=== PATIENT | male | born 1940 | race Caucasian/White ===

== ENCOUNTER 2018-03-25 12:41 | Emergency (ER) | payer MEDICARE ==
[~2018-03-25] VITALS: Ht 177.8 cm; Wt 110.0 kg
[~2018-03-25 12:41] MED LIST: CHOL10002 PO; MULT-257 PO; OMEG1CAP23 PO
[2018-03-25 13:30] LABS: BASOPHILS # (AUTO) 0.02 x10^3/uL (0-0.1); BASOPHILS % (AUTO) 0 % (0-1); EOSINOPHILS # (AUTO) 0.06 x10^3/uL (0-0.4); EOSINOPHILS % (AUTO) 1 % (1-7); LYMPHOCYTES # (AUTO) 0.71 x10^3/uL (1-3.4); LYMPHOCYTES % (AUTO) 10 % (22-44); MD NO; MEAN CORPUSCULAR HEMOGLOBIN 29.2 pg (27.5-34.5); MEAN CORPUSCULAR HGB CONC 33.7 g/dL (33.2-36.2); MEAN CORPUSCULAR VOLUME 86.7 fL (81-97); MONOCYTES # (AUTO) 0.38 x10^3/uL (0.2-0.8); MONOCYTES % (AUTO) 6 % (2-9); NEUTROPHILS # (AUTO) 5.79 x10^3/uL (1.8-6.8); NEUTROPHILS % (AUTO) 83 % (42-75); PLATELET COUNT 180 x10^3/uL (130-400); RED BLOOD COUNT 4.75 x10^6/uL (4.38-5.82); RED CELL DISTRIBUTION WIDTH 14.7 % (9.4-14.8)
[2018-03-25 13:34] LABS: ANION GAP 9 mmol/L (5-15); CALCIUM 9.3 mg/dL (8.5-10.1); CHLORIDE 105 mmol/L (98-107)
[2018-03-25 13:38] LABS: TROPONIN I < 0.015 ng/mL (0.000-0.045)
[2018-03-25 15:07] VITALS: BP 133/69
== END 2018-03-25 15:20 | disposition home or self-care (01) ==
LOC: ED 15:00
DX: R55 Syncope and collapse (principal); E78.00 Pure hypercholesterolemia, unspecified; I10 Essential (primary) hypertension
CPT/HCPCS: 36415; 80048; 84484; 85025; 93005; 99285

== ENCOUNTER 2019-01-15 13:13 | Inpatient (IN) | payer MEDICARE ==
[~2019-01-15] VITALS: Ht 182.9 cm; Wt 102.0 kg
--- NOTE | 2019-01-15 13:30 | NUR ---
Late entry: Pt raj MILLER at 1310. 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 code neuro called & Dr. Beauchamp neurology paged. Pt arrived & brief visual assessment by Dr. Arana done. Pt taken on EMS gurney to CT accompanied by this RN & Tele2 casework supervisor Hue. Pt placed on zoll monitoring tech while on CT table. Pt's speech slurred & somewhat incoherent. Follows commands, not moving LUE, withdraws to touch LLE. Clothing soiled & soaked in urine. Field VS WNL, BG 127.
--- NOTE | 2019-01-15 13:45 | NUR ---
CT head & CTA performed. IV est while in radiology. Pt closes eyes frequently but opens them to V. Dysarthria & slurred speech present but pt does answer orientation questions appropriately. No change from initial assessment of mild L facial droop, weak cone marker L hand, + immediate drift of LUE & LLE. All sensation intact, CORTNEY. Dried blood present around lips & pt questioned about sz hx answering "no". Soiled clothing removed & pt cleaned. Mild redness around crease of buttocks noted & ecchymosis/abrasion to L buttock present. Able to locate wallet & cell phone in pt's pockets. Registration called to update pt's name in system as he was initially listed as unidentified. Tele neuro assessment completed w/ Dr. Beauchamp w/ recommendation for MRI brain & stating that pt is not a candidate for thrombolytics or thrombectomy. Additional info received from pt reveals that pt last seen normal 2 days ago by neighbor & 30min onset not accurate.
[2019-01-15] MEDS ORDERED: OMNIPAQUE 350 MG/ML, 100ML BOTTLE ONE (13:49)
--- NOTE | 2019-01-15 13:51 | NUR ---
TASK RN: PHARM REQ FOR [place] ASA 300 MG SENT
[2019-01-15 13:59] LABS: BASOPHILS # (AUTO) 0.01 x10^3/uL (0-0.1); BASOPHILS % (AUTO) 0 % (0-1); EOSINOPHILS # (AUTO) 0.07 x10^3/uL (0-0.4); EOSINOPHILS % (AUTO) 1 % (1-7); LYMPHOCYTES # (AUTO) 1.13 x10^3/uL (1-3.4); LYMPHOCYTES % (AUTO) 10 % (22-44); MD NO; MEAN CORPUSCULAR HEMOGLOBIN 29.3 pg (27.5-34.5); MEAN CORPUSCULAR HGB CONC 32.5 g/dL (33.2-36.2); MEAN CORPUSCULAR VOLUME 90.2 fL (81-97); MEAN PLATELET VOLUME 7.8 fL (7.4-10.4); MONOCYTES # (AUTO) 0.88 x10^3/uL (0.2-0.8); MONOCYTES % (AUTO) 8 % (2-9); NEUTROPHILS # (AUTO) 9.25 x10^3/uL (1.8-6.8); NEUTROPHILS % (AUTO) 82 % (42-75); PLATELET COUNT 217 x10^3/uL (130-400); RED BLOOD COUNT 5.45 x10^6/uL (4.38-5.82); RED CELL DISTRIBUTION WIDTH 14.4 % (9.4-14.8)
[2019-01-15 14:03] LABS: INTERNATIONAL NORMALIZED RATIO 1.07 (0.93-1.1); PROTHROMBIN TIME 11.2 Seconds (9.6-11.5)
[2019-01-15] MEDS ORDERED: SODIUM CHLORIDE FLUSH 10ML SYR IVF PRN (14:30)
[2019-01-15] MEDS ORDERED: ASPIRIN 300 MG SUPP PR ONE (14:30)
--- NOTE | 2019-01-15 14:40 | NUR ---
PATIENT BACK FROM MRI, TRANSFERRED TO ROOM 16. BEDSIDE REPORT FROM ZAKIYA VALLEJO. ASSUMED CARE OF PATIENT AT THIS TIME. PATIENT SLEEPING IN GURNEY, RESPONDS TO VOICE. VS UPDATED IN CHART.
--- NOTE | 2019-01-15 14:48 | NUR ---
[facility] AT BEDSIDE, PATIENT HAVING DIFFICULTY SPEAKING, ABLE TO FOLLOW COMMANDS AND ANSWER QUESTIONS APPROPRIATELY.
[2019-01-15] MEDS ORDERED: ASPI-496 PO (15:05)
[2019-01-15] MEDS ORDERED: AMLO10TA8 PO (15:05)
[2019-01-15] MEDS ORDERED: SIMV5TAB14 PO (15:05)
--- NOTE | 2019-01-15 15:09 | NUR ---
MAXINE LEE ([facility]) .
--- NOTE | 2019-01-15 15:21 | NUR ---
Report to thanh Swann mechanical maintenance supervisor as receiving RN was unavailable for report.
--- NOTE | 2019-01-15 15:26 | NUR ---
PATIENT TRANSFERRED/ADMITTED TO HOSPITAL BED UPSTAIRS.
[2019-01-15] MEDS ORDERED: ACETAMINOPHEN 650 MG/20.3 ML UDC PO PRN (16:00)
[2019-01-15] MEDS ORDERED: ONDANSETRON 2MG/ML, 2ML IVPush PRN (16:00)
[2019-01-15 16:25] VITALS: BP 141/60
[2019-01-15] MEDS: POTASSIUM CHLORIDE 20 MEQ in SODIUM CHLORIDE 0.9% 1,000 ML IV SCH (16:51)
[2019-01-15 18:45] VITALS: BP 141/76
[2019-01-15 20:27] VITALS: BP 128/64
[2019-01-15] MEDS: ATORVASTATIN 80 MG TABLET PO SCH (20:34)
[2019-01-16 02:22] VITALS: BP 128/70
[2019-01-16] MEDS: POTASSIUM CHLORIDE 20 MEQ in SODIUM CHLORIDE 0.9% 1,000 ML IV SCH (02:47)
[2019-01-16 05:44] LABS: CHOL/HDL RATIO 5.1; LDL/HDL RATIO 3.5 (0.5-3.0)
[2019-01-16 05:47] LABS: HEMOGLOBIN A1C 5.8 % (4.2-6.3)
[2019-01-16 06:46] VITALS: BP 125/63
[2019-01-16] MEDS ORDERED: CLOPIDOGREL 300 MG TABLET PO ONE (09:00)
[2019-01-16] MEDS: ASPIRIN 300 MG SUPP PR SCH (09:00)
[2019-01-16] MEDS ORDERED: ASPIRIN 300 MG SUPP PR SCH (09:00)
[2019-01-16 09:22] LABS: ANION GAP 5 mmol/L (5-15); CALCIUM 8.6 mg/dL (8.5-10.1); CHLORIDE 114 mmol/L (98-107)
[2019-01-16 09:24] LABS: ALANINE AMINOTRANSFERASE 30 U/L (12-78); CREATININE 0.94 mg/dL (0.7-1.3)
[2019-01-16 09:26] LABS: ALKALINE PHOSPHATASE 81 U/L (45-117); BILIRUBIN,TOTAL 1.1 mg/dL (0.2-1.0); TOTAL PROTEIN 6.2 g/dL (6.4-8.2)
[2019-01-16 09:29] LABS: BASOPHILS # (AUTO) 0.04 x10^3/uL (0-0.1); BASOPHILS % (AUTO) 0 % (0-1); EOSINOPHILS # (AUTO) 0.18 x10^3/uL (0-0.4); EOSINOPHILS % (AUTO) 2 % (1-7); LYMPHOCYTES # (AUTO) 1.58 x10^3/uL (1-3.4); LYMPHOCYTES % (AUTO) 15 % (22-44); MD NO; MEAN CORPUSCULAR HEMOGLOBIN 28.9 pg (27.5-34.5); MEAN CORPUSCULAR VOLUME 87.7 fL (81-97); MEAN PLATELET VOLUME 7.8 fL (7.4-10.4); MONOCYTES # (AUTO) 0.84 x10^3/uL (0.2-0.8); MONOCYTES % (AUTO) 8 % (2-9); NEUTROPHILS # (AUTO) 7.66 x10^3/uL (1.8-6.8); NEUTROPHILS % (AUTO) 74 % (42-75); PLATELET COUNT 205 x10^3/uL (130-400); RED BLOOD COUNT 5.23 x10^6/uL (4.38-5.82); RED CELL DISTRIBUTION WIDTH 14.3 % (9.4-14.8)
[2019-01-16 12:19] VITALS: BP 133/72
[2019-01-16] MEDS: DEXTROSE 5% 1,000 ML IV SCH (15:22)
[2019-01-16 19:45] VITALS: BP 158/85
[2019-01-16] MEDS: ATORVASTATIN 80 MG TABLET PO SCH ×2 (20:39)
[2019-01-17 00:30] VITALS: BP 172/75
[2019-01-17 08:00] VITALS: BP 140/83
[2019-01-17] MEDS: ASPIRIN 300 MG SUPP PR SCH (09:16)
[2019-01-17] MEDS ORDERED: LOSA1TAB22 PO (12:51)
[2019-01-17] MEDS ORDERED: NITR0.4T41 SL (12:51)
[2019-01-17] MEDS: DEXTROSE 5% 1,000 ML IV SCH (13:17)
[2019-01-17 14:00] VITALS: BP 141/70
[2019-01-17 19:38] VITALS: BP 146/68
[2019-01-17] MEDS: ATORVASTATIN 80 MG TABLET PO SCH ×2 (21:00)
[2019-01-18 01:38] VITALS: BP 122/77
[2019-01-18 02:24] LABS: ALANINE AMINOTRANSFERASE 34 U/L (12-78); ALBUMIN 2.9 g/dL (3.4-5.0); ANION GAP 9 mmol/L (5-15); BASOPHILS % (AUTO) 0 % (0-1); CALCIUM 8.5 mg/dL (8.5-10.1); CHLORIDE 111 mmol/L (98-107); CREATININE 0.79 mg/dL (0.7-1.3); EOSINOPHILS # (AUTO) 0.16 x10^3/uL (0-0.4); EOSINOPHILS % (AUTO) 2 % (1-7); LYMPHOCYTES # (AUTO) 0.71 x10^3/uL (1-3.4); LYMPHOCYTES % (AUTO) 6 % (22-44); MD NO; MEAN CORPUSCULAR HEMOGLOBIN 29.3 pg (27.5-34.5); MEAN CORPUSCULAR HGB CONC 32.6 g/dL (33.2-36.2); MEAN CORPUSCULAR VOLUME 89.7 fL (81-97); MEAN PLATELET VOLUME 8.1 fL (7.4-10.4); MONOCYTES # (AUTO) 0.65 x10^3/uL (0.2-0.8); MONOCYTES % (AUTO) 6 % (2-9); NEUTROPHILS # (AUTO) 9.67 x10^3/uL (1.8-6.8); NEUTROPHILS % (AUTO) 86 % (42-75); PLATELET COUNT 164 x10^3/uL (130-400)
[2019-01-18 02:28] LABS: ALKALINE PHOSPHATASE 93 U/L (45-117); BILIRUBIN,TOTAL 1.4 mg/dL (0.2-1.0); TOTAL PROTEIN 6.5 g/dL (6.4-8.2)
[2019-01-18] MEDS ORDERED: FUROSEMIDE 20 MG/2 ML ONE (02:48)
[2019-01-18] MEDS ORDERED: FUROSEMIDE 20 MG/2 ML IV ONE (03:00)
[2019-01-18] MEDS ORDERED: POTASSIUM CHLORIDE 40 MEQ in DEXTROSE 5% 500 ML IV ONE (03:00)
[2019-01-18] MEDS: DEXTROSE 5% 1,000 ML IV SCH (06:09)
[2019-01-18] MEDS ORDERED: POTASSIUM CHLORIDE 10% 40 MEQ/30 ML UDC PO ONE (07:00)
[2019-01-18 07:27] VITALS: BP 119/74
[2019-01-18] MEDS: ASPIRIN 300 MG SUPP PR SCH (08:30)
[2019-01-18] MEDS ORDERED: FUROSEMIDE 40 MG/4 ML IV ONE ×3 (11:00→23:00)
[2019-01-18 12:22] VITALS: BP 115/76
[2019-01-18 12:56] VITALS: BP 120/78
[2019-01-18] MEDS ORDERED: FUROSEMIDE 40 MG/4 ML ONE (16:08)
[2019-01-18] MEDS ORDERED: POTASSIUM CHLORIDE 10% 40 MEQ/30 ML UDC NG ONE (16:30)
[2019-01-18] MEDS ORDERED: ALBUTEROL SULFATE 2.5 MG/3 ML NPPB SCH (16:30)
[2019-01-18] MEDS ORDERED: POTASSIUM CHLORIDE 40 MEQ in SODIUM CHLORIDE 0.9% 500 ML IV ONE (18:30)
[2019-01-18 19:36] VITALS: BP 110/73
[2019-01-18] MEDS: ATORVASTATIN 80 MG TABLET PO SCH (21:00)
[2019-01-19] MEDS ORDERED: FENTANYL PF 100 MCG/2ML ONE (00:28)
[2019-01-19] MEDS ORDERED: PHARMACY MAY ADJ FOR RENAL FX MC SCH (01:00)
[2019-01-19] MEDS ORDERED: LACTULOSE 20 GM/30 ML UDC NG PRN (01:00)
[2019-01-19] MEDS ORDERED: BISACODYL 10 MG SUPP PR PRN (01:00)
[2019-01-19] MEDS ORDERED: SENNA/DOCUSATE TABLET NG PRN (01:00)
[2019-01-19] MEDS ORDERED: LIDOCAINE-MPF 1%, 2ML ENDO PRN (01:00)
[2019-01-19] MEDS ORDERED: SENNA 176 MG/5 ML ORAL SOL NG PRN (01:00)
[2019-01-19] MEDS: FENTANYL PF 100 MCG/2ML IVPush PRN (01:31)
[2019-01-19] MEDS: PROPOFOL 100 ML IV PRN ×2 (01:32→18:00)
[2019-01-19 02:33] LABS: BASOPHILS # (AUTO) 0.01 x10^3/uL (0-0.1); BASOPHILS % (AUTO) 0 % (0-1); EOSINOPHILS # (AUTO) 0.03 x10^3/uL (0-0.4); EOSINOPHILS % (AUTO) 0 % (1-7); LYMPHOCYTES # (AUTO) 0.58 x10^3/uL (1-3.4); LYMPHOCYTES % (AUTO) 5 % (22-44); MD NO; MEAN CORPUSCULAR HEMOGLOBIN 29.2 pg (27.5-34.5); MEAN CORPUSCULAR HGB CONC 32.7 g/dL (33.2-36.2); MEAN CORPUSCULAR VOLUME 89.2 fL (81-97); MEAN PLATELET VOLUME 8.4 fL (7.4-10.4); MONOCYTES # (AUTO) 0.64 x10^3/uL (0.2-0.8); MONOCYTES % (AUTO) 6 % (2-9); NEUTROPHILS # (AUTO) 9.98 x10^3/uL (1.8-6.8); NEUTROPHILS % (AUTO) 89 % (42-75); PLATELET COUNT 161 x10^3/uL (130-400); RED BLOOD COUNT 5.33 x10^6/uL (4.38-5.82); RED CELL DISTRIBUTION WIDTH 14.2 % (9.4-14.8)
[2019-01-19 02:35] LABS: ANION GAP 11 mmol/L (5-15); CALCIUM 8.6 mg/dL (8.5-10.1); CHLORIDE 110 mmol/L (98-107)
[2019-01-19 02:36] LABS: CREATININE 1.39 mg/dL (0.7-1.3)
[2019-01-19] MEDS ORDERED: OMNIPAQUE 350 MG/ML, 100ML BOTTLE ONE (03:22)
[2019-01-19 03:49] VITALS: BP 101/60
[2019-01-19] MEDS ORDERED: HEPARIN wt. based STROKE protocol MC SCH (04:30)
[2019-01-19] MEDS ORDERED: NOREPINEPHRINE 4 MG in SODIUM CHLORIDE 0.9% 246 ML IV PRN (04:30)
[2019-01-19] MEDS ORDERED: HEPARIN 25,000 UNITS/500ML PMX 500 ML IV PRN (04:30)
[2019-01-19] MEDS ORDERED: HEPARIN 5,000 UNITS/ML, 1ML IV ONE (04:30)
[2019-01-19 04:49] LABS: ANION GAP 7 mmol/L (5-15); CALCIUM 8.7 mg/dL (8.5-10.1); CHLORIDE 110 mmol/L (98-107)
[2019-01-19] MEDS ORDERED: ETOMIDATE 20 MG/10 ML ONE (08:00)
[2019-01-19] MEDS ORDERED: SUCCINYLCHOLINE 20 MG/ML, 10ML ONE (08:00)
[2019-01-19] MEDS ORDERED: MIDAZOLAM 1 MG/ML, 2ML ONE (08:00)
[2019-01-19] MEDS ORDERED: PROPOFOL 100 ML IV ONE (08:00)
--- NOTE | 2019-01-19 10:12 | NUR ---
TF GOAL: w/ propofol: PROMOTE @ 75ml/hr off propofol: PROMOTE @ 85ml/hr
[2019-01-19] MEDS: AMPICILLIN/SULBACTAM 3 GM in SODIUM CHLORIDE 0.9% 100 ML IV SCH ×3 (10:22→23:45)
[2019-01-19] MEDS: ATORVASTATIN 80 MG TABLET PO SCH (21:30)
[2019-01-20] MEDS: PROPOFOL 100 ML IV PRN ×2 (03:00→19:53)
[2019-01-20] MEDS: AMPICILLIN/SULBACTAM 3 GM in SODIUM CHLORIDE 0.9% 100 ML IV SCH ×4 (05:34→23:07)
[2019-01-20 05:51] LABS: ANION GAP 7 mmol/L (5-15); CHLORIDE 110 mmol/L (98-107)
[2019-01-20 05:52] LABS: CREATININE 1.91 mg/dL (0.7-1.3)
[2019-01-20] MEDS: HEPARIN 25,000 UNITS/500ML PMX 500 ML IV PRN (06:47)
[2019-01-20] MEDS ORDERED: VANCOMYCIN PER PHARMACY MC PRN (08:30)
[2019-01-20] MEDS: LINEZOLID PMX 600MG/300ML 300 ML IV SCH ×2 (09:11→20:35)
[2019-01-20] MEDS: POTASSIUM CHLORIDE 10% 40 MEQ/30 ML UDC PO SCH ×2 (09:11→20:35)
[2019-01-20] MEDS ORDERED: INSULIN LISPRO 100 UNITS/ML, PEN SQ-INSULIN SCH (11:00)
[2019-01-20] MEDS: INSULIN LISPRO 100 UNITS/ML, PEN SQ-INSULIN SCH ×3 (12:08→23:25)
[2019-01-20] MEDS ORDERED: SODIUM CHLORIDE 0.9%, 500ML IVBOLUS ONE (15:30)
[2019-01-20] MEDS: ATORVASTATIN 80 MG TABLET PO SCH (20:35)
[2019-01-21] MEDS: HEPARIN 25,000 UNITS/500ML PMX 500 ML IV PRN ×2 (03:00→21:08)
[2019-01-21 03:34] LABS: ANION GAP 5 mmol/L (5-15); CALCIUM 8.3 mg/dL (8.5-10.1); CHLORIDE 111 mmol/L (98-107); CREATININE 1.76 mg/dL (0.7-1.3)
[2019-01-21 03:38] LABS: MEAN CORPUSCULAR HEMOGLOBIN 29.5 pg (27.5-34.5); MEAN CORPUSCULAR HGB CONC 32.6 g/dL (33.2-36.2); MEAN CORPUSCULAR VOLUME 90.8 fL (81-97); MEAN PLATELET VOLUME 9.3 fL (7.4-10.4); PLATELET COUNT 118 x10^3/uL (130-400); RED BLOOD COUNT 4.07 x10^6/uL (4.38-5.82); RED CELL DISTRIBUTION WIDTH 14.4 % (9.4-14.8)
[2019-01-21 05:08] LABS: BASOPHILS % (AUTO) 0 % (0-1); EOSINOPHILS # (AUTO) 0.05 x10^3/uL (0-0.4); EOSINOPHILS % (AUTO) 0 % (1-7); LYMPHOCYTES # (AUTO) 0.54 x10^3/uL (1-3.4); LYMPHOCYTES % (AUTO) 4 % (22-44); MD SCAN; MONOCYTES # (AUTO) 0.93 x10^3/uL (0.2-0.8); MONOCYTES % (AUTO) 7 % (2-9); NEUTROPHILS # (AUTO) 11.71 x10^3/uL (1.8-6.8); NEUTROPHILS % (AUTO) 89 % (42-75)
[2019-01-21] MEDS: AMPICILLIN/SULBACTAM 3 GM in SODIUM CHLORIDE 0.9% 100 ML IV SCH ×3 (05:45→17:44)
[2019-01-21] MEDS: INSULIN LISPRO 100 UNITS/ML, PEN SQ-INSULIN SCH ×3 (05:45→17:44)
[2019-01-21] MEDS: LINEZOLID PMX 600MG/300ML 300 ML IV SCH ×2 (08:45→21:07)
[2019-01-21 09:55] LABS: HIT RESULT NEGATIVE (NEGATIVE)
[2019-01-21] MEDS ORDERED: PROPOFOL 100 ML IV ONE (17:39)
[2019-01-21] MEDS: PROPOFOL 100 ML IV PRN (17:45)
[2019-01-21] MEDS: ATORVASTATIN 80 MG TABLET PO SCH (21:07)
[2019-01-22] MEDS: AMPICILLIN/SULBACTAM 3 GM in SODIUM CHLORIDE 0.9% 100 ML IV SCH ×3 (00:27→10:54)
[2019-01-22] MEDS: INSULIN LISPRO 100 UNITS/ML, PEN SQ-INSULIN SCH ×3 (00:32→12:08)
[2019-01-22 04:46] LABS: ANION GAP 5 mmol/L (5-15); CALCIUM 8.2 mg/dL (8.5-10.1); CHLORIDE 111 mmol/L (98-107); CREATININE 1.34 mg/dL (0.7-1.3); TRIGLYCERIDES 100 mg/dL (50-200)
[2019-01-22] MEDS: FENTANYL PF 100 MCG/2ML IVPush PRN (05:51)
[2019-01-22] MEDS: PROPOFOL 100 ML IV PRN (06:33)
[2019-01-22 07:06] LABS: MEAN CORPUSCULAR HEMOGLOBIN 28.9 pg (27.5-34.5); MEAN CORPUSCULAR HGB CONC 32.6 g/dL (33.2-36.2); MEAN CORPUSCULAR VOLUME 88.7 fL (81-97); MEAN PLATELET VOLUME 9.9 fL (7.4-10.4); PLATELET COUNT 124 x10^3/uL (130-400); RED BLOOD COUNT 3.67 x10^6/uL (4.38-5.82); RED CELL DISTRIBUTION WIDTH 14.6 % (9.4-14.8)
[2019-01-22 07:27] LABS: BASOPHILS # (AUTO) 0.01 x10^3/uL (0-0.1); BASOPHILS % (AUTO) 0 % (0-1); EOSINOPHILS # (AUTO) 0.14 x10^3/uL (0-0.4); EOSINOPHILS % (AUTO) 1 % (1-7); LYMPHOCYTES # (AUTO) 0.53 x10^3/uL (1-3.4); LYMPHOCYTES % (AUTO) 4 % (22-44); MD SCAN; MONOCYTES # (AUTO) 0.85 x10^3/uL (0.2-0.8); MONOCYTES % (AUTO) 7 % (2-9); NEUTROPHILS # (AUTO) 10.62 x10^3/uL (1.8-6.8); NEUTROPHILS % (AUTO) 87 % (42-75)
[2019-01-22] MEDS: LINEZOLID PMX 600MG/300ML 300 ML IV SCH (07:58)
[2019-01-22 08:34] LABS: OCCULT BLOOD POSITIVE (NEGATIVE)
[2019-01-22] MEDS ORDERED: PANTOPRAZOLE 40 MG IV IVPush SCH (09:00)
[2019-01-22] MEDS ORDERED: ATROPINE OPHTH SOLN 1%, 5ML PO PRN (09:30)
[2019-01-22] MEDS ORDERED: morphine SULFATE 10 MG/ML, 1ML IVPush PRN ×2 (09:30)
[2019-01-22] MEDS: LORazepam 2 MG/ML, 1ML IVPush PRN ×2 (10:56→11:20)
[2019-01-23] MEDS ORDERED: PROPOFOL 100 ML IV PRN (00:50)
== END 2019-01-22 14:16 | disposition expired | DRG 64 ==
LOC: EDBD 13:13 → ED 14:24 → MERGE 14:25 → EDIP 14:25 → ED 15:20 → 4EST 15:36 → CCU 01-18 22:41
PROVIDERS: ADMIT Internal Medicine; ATTEND Internal Medicine
PROC: 02HV33Z Insertion of Infusion Device into Superior Vena Cava, Percutaneous Approach (ICD-10-PCS; principal; 2019-01-15)
PROC: B548ZZA Ultrasonography of Superior Vena Cava, Guidance (ICD-10-PCS; 2019-01-15)
PROC: 0BH17EZ Insertion of Endotracheal Airway into Trachea, Via Natural or Artificial Opening (ICD-10-PCS; 2019-01-19)
PROC: 5A1945Z Respiratory Ventilation, 24-96 Consecutive Hours (ICD-10-PCS; 2019-01-19)
PROC: 5A09357 Assistance with Respiratory Ventilation, Less than 24 Consecutive Hours, Continuous Positive Airway Pressure (ICD-10-PCS; 2019-01-19)
DX: I63.411 Cerebral infarction due to embolism of right middle cerebral artery (principal); J96.01 Acute respiratory failure with hypoxia; J69.0 Pneumonitis due to inhalation of food and vomit; I26.92 Saddle embolus of pulmonary artery without acute cor pulmonale; J15.211 Pneumonia due to Methicillin susceptible Staphylococcus aureus; G81.94 Hemiplegia, unspecified affecting left nondominant side; Z99.11 Dependence on respirator [ventilator] status; G93.40 Encephalopathy, unspecified; J98.11 Atelectasis; I82.611 Acute embolism and thrombosis of superficial veins of right upper extremity; N17.9 Acute kidney failure, unspecified; I47.1 Supraventricular tachycardia; K92.1 Melena; Z51.5 Encounter for palliative care; Z66 Do not resuscitate; D64.9 Anemia, unspecified; R13.10 Dysphagia, unspecified; D69.6 Thrombocytopenia, unspecified; G93.89 Other specified disorders of brain; Z87.820 Personal history of traumatic brain injury; I65.23 Occlusion and stenosis of bilateral carotid arteries; R47.1 Dysarthria and anarthria; E78.5 Hyperlipidemia, unspecified; E66.9 Obesity, unspecified; E78.00 Pure hypercholesterolemia, unspecified; G83.9 Paralytic syndrome, unspecified; N35.911 Unspecified urethral stricture, male, meatal; I65.1 Occlusion and stenosis of basilar artery; K80.20 Calculus of gallbladder without cholecystitis without obstruction; E87.70 Fluid overload, unspecified; I08.1 Rheumatic disorders of both mitral and tricuspid valves; I50.810 Right heart failure, unspecified; I11.0 Hypertensive heart disease with heart failure; R29.711 NIHSS score 11; E11.9 Type 2 diabetes mellitus without complications; I27.81 Cor pulmonale (chronic); Z81.1 Family history of alcohol abuse and dependence; Z84.89 Family history of other specified conditions; Z79.899 Other long term (current) drug therapy; Z68.30 Body mass index [BMI] 30.0-30.9, adult
CPT/HCPCS: 36415; 36573; 36600; 70450; 70496; 70498; 70551; 71045; 71275; 80047; 80048; 80053; 80061; 82272; 82803; 82962; 83036; 83735; 83880; 84145; 84478; 85025; 85520; 85610; 85730; 86022; 87070; 87077; 87081; 87186; 87205; 93306; 93308; 93321; 93325; 93970; 94002; 94003; 94640; G0378; J0295; J1644; J1940; J2020; J2250; J2704; J3010; J3480; J7070; J7613; Q9967; 92523-GN; C1751; J0330; J1815; J2060; J2270; J7030; J7040; J7060